=== PATIENT | female | born 1945 | race Caucasian/White ===

== ENCOUNTER 2020-04-24 11:04 | Emergency (ER) | payer MEDICARE ==
[2020-04-24 12:08] LABS: HEMATOCRIT 40.2 % (37.0-47.0); HEMOGLOBIN 13.6 g/dl (12.0-16.0); IMMATURE GRANULOCYTES 0.5 % (0.0-5.0); MEAN CORPUSCULAR HGB 30.8 pG CALC (26.0-32.0); MEAN CORPUSCULAR HGB CONC 33.8 g/dL CAL (32.0-36.0); NEUT# 6.72 thou/uL (2.00-7.15); RED BLOOD COUNT 4.42 mill/uL (4.20-5.60); RED CELL DISTRI WIDTH 13.5 % (11.5-15.5)
[2020-04-24 12:37] LABS: ALBUMIN 4.3 g/dL (3.2-5.0); ALKALINE PHOSPHATASE 83 u/l (38-126); ANION GAP 16 (6-22 (CALC)); BILIRUBIN, TOTAL 0.8 mg/dL (0.0-1.4); BUN 34 mg/dL (8-23); BUN/CREATININE RATIO 26 (12-20 (CALC)); CARBON DIOXIDE 25 mmol/l (22-30); CHLORIDE 93 mmol/l (95-108); CREATININE 1.3 mg/dL (0.5-1.0); GFR 40 ML/MIN (>=60 (CALC)); GFR FOR AFR.AMER. 49 ML/MIN (>=60 (CALC)); POTASSIUM 3.4 mmol/l (3.5-5.1); SGOT/AST 46 u/l (9-36); SODIUM 130 mmol/l (137-146); TOTAL PROTEIN 8.4 g/dL (6.3-8.2)
[2020-04-24] MEDS ORDERED: ZPAK PO (13:33)
[2020-04-24] MEDS ORDERED: TAM75CAP PO (13:33)
[2020-04-24] MEDS ORDERED: NORVASC5 M1 PO (13:37)
[2020-04-24] MEDS ORDERED: B-121000 MC4 PO (13:38)
[2020-04-24] MEDS ORDERED: ESOMEPRAZOLE MA40 MG PO (13:39)
[2020-04-24] MEDS ORDERED: CYMBALTA60 MG PO (13:39)
[2020-04-24] MEDS ORDERED: LUNESTA2 MG PO (13:40)
[2020-04-24] MEDS ORDERED: HYDROXYZ HCL25 MG PO (13:41)
[2020-04-24] MEDS ORDERED: METOPROL TAR25 MG PO (13:42)
[2020-04-24] MEDS ORDERED: LEVOCETIRIZINE D5 MG PO (13:42)
[2020-04-24] MEDS ORDERED: OFEV100 MG PO (13:43)
[2020-04-24] MEDS ORDERED: SIMVASTATIN10 MG PO (13:44)
[2020-04-24] MEDS ORDERED: STIOLTO RESPIMA1 AER IN (13:45)
[2020-04-24] MEDS ORDERED: TRAMADOL HCL50 MG PO (13:45)
[2020-04-24 14:30] VITALS: BP 124/65
--- NOTE | 2020-04-25 09:16 | NUR ---
Notified patient of positive Covid results. Advised patient to return to the ED with any difficulty breathing or other urgent needs. Advised patient to quarantine until contacted by the [facility] with further instructions. Patient verbalized understanding.
== END 2020-04-24 14:30 | disposition home or self-care (01) ==
LOC: ED 11:04
PROVIDERS: Family Medicine
DX: U07.1 COVID-19 (principal); J11.1 Influenza due to unidentified influenza virus with other respiratory manifestations; R53.83 Other fatigue; R11.0 Nausea; I10 Essential (primary) hypertension; Z99.81 Dependence on supplemental oxygen

== ENCOUNTER 2020-04-26 11:22 | Inpatient (IN) | payer MEDICARE ==
[~2020-04-26] VITALS: Ht 154.9 cm; Wt 44.0 kg
[~2020-04-26 11:22] MED LIST: B-121000 MC4 PO; CYMBALTA60 MG PO; ESOMEPRAZOLE MA40 MG PO; HYDROXYZ HCL25 MG PO; LEVOCETIRIZINE D5 MG PO; LUNESTA2 MG PO; METOPROL TAR25 MG PO; NORVASC5 M1 PO; OFEV100 MG PO; SIMVASTATIN10 MG PO; STIOLTO RESPIMA1 AER IN; TAM75CAP PO; TRAMADOL HCL50 MG PO; ZPAK PO
--- NOTE | 2020-04-26 11:22 | NUR ---
PT ASSISTED TO ROOM 9 VIA W/C. PT STABLE AND IN NO DISTRESS, HAS 2L OF HOME O2 ALREADY INITIATED. PT SWITCHED TO [facility] 2L OF O2
[2020-04-26 12:33] LABS: HEMATOCRIT 38.4 % (37.0-47.0); HEMOGLOBIN 13.3 g/dl (12.0-16.0); IMMATURE GRANULOCYTES 0.3 % (0.0-5.0); MEAN CELL VOLUME 90.6 fL CALC (80.0-100.0); MEAN CORPUSCULAR HGB 31.4 pG CALC (26.0-32.0); MEAN CORPUSCULAR HGB CONC 34.6 g/dL CAL (32.0-36.0); NEUT# 10.31 thou/uL (2.00-7.15); RED BLOOD COUNT 4.24 mill/uL (4.20-5.60); RED CELL DISTRI WIDTH 13.5 % (11.5-15.5)
[2020-04-26 12:37] LABS: ALBUMIN 4.1 g/dL (3.2-5.0); ALKALINE PHOSPHATASE 86 u/l (38-126); ANION GAP 15 (6-22 (CALC)); BILIRUBIN, TOTAL 0.9 mg/dL (0.0-1.4); BUN 36 mg/dL (8-23); BUN/CREATININE RATIO 34 (12-20 (CALC)); CARBON DIOXIDE 27 mmol/l (22-30); CHLORIDE 93 mmol/l (95-108); CREATININE 1.1 mg/dL (0.5-1.0); GFR 49 ML/MIN (>=60 (CALC)); GFR FOR AFR.AMER. 59 ML/MIN (>=60 (CALC)); POTASSIUM 3.5 mmol/l (3.5-5.1); SGOT/AST 32 u/l (9-36); SODIUM 131 mmol/l (137-146); TOTAL PROTEIN 7.9 g/dL (6.3-8.2)
--- NOTE | 2020-04-26 12:37 | NUR ---
IV FLUIDS AND ANTIBIOTICS INFUSING WITHOUT DIFFICULTY, VITALS STABLE ON MONITOR. GRANDAUGHTER AT BEDSIDE. CALL LIGHT WITHIN REACH.
--- NOTE | 2020-04-26 12:52 | NUR ---
SBAR PRINTED TO FLOOR
[2020-04-26 13:08] LABS: C-REACTIVE PROTEIN 4.8 mg/dL (0-0.9)
--- NOTE | 2020-04-26 13:53 | NUR ---
PT REMAINS STABLE. IV MEDS AND FLUIDS COMPLETED. TELEMETRY IN PLACE FOR ADMISSION. BELONGINGS GATHERED AND REMAIN ON PT FOR TRANSPORT.
--- NOTE | 2020-04-26 13:58 | NUR ---
REPORT GIVEN TO JUAN CARLOS PIMENTEL.
[2020-04-26 14:02] VITALS: BP 110/53
--- NOTE | 2020-04-26 14:02 | NUR ---
PATIENT RECEIVED FROM ED AT THIS TIME. PATIENT DENIES ANY NEEDS AT THIS TIME. PATIENT STATES SHE ISN'T HAVING ANY PAIN AND RATES HER PAIN A 0 OUT OF 10. PATIENT WAS EDUCATED ON ROOM AND CARE OF PLAN. PATEINT VERBALIZES UNDERSTANDING OF ADMISSION. IV PATENT AND TELE MONITOR IN PLACE. PATIENT LUNG GUZMAN ARE CRACKLES AND DIMINISHED IN SOUND. PATIENT PREVIOUSLY HAS HAD A LEFT LOBECTOMY. CALL LIGHT WITHIN REACH AND SIDERAILS UP X2.
--- NOTE | 2020-04-26 16:00 | NUR ---
O.T. screened pt. and may benefit from P.T. and O.T. eval once medically stable.
[2020-04-26 16:39] LABS: URINE BILIRUBIN - DIPSTICK NEGATIVE (NEGATIVE); URINE BLOOD DIPSTICK NEGATIVE (NEGATIVE); URINE COLOR YELLOW; URINE GLUCOSE - DIPSTICK NEGATIVE (NEGATIVE); URINE KETONE TRACE mg/dL (NEGATIVE); URINE LEUK ESTERASE NEGATIVE (NEGATIVE); URINE NITRITE - DIPSTICK NEGATIVE (Negative); URINE PROTEIN - DIPSTICK TRACE mg/dL (NEG-TRACE); URINE UROBILINOGEN - DIPSTICK 0.2 E.U./dL (0.2)
[2020-04-26 19:30] VITALS: BP 102/44
--- NOTE | 2020-04-26 20:34 | NUR ---
ASSESSMENT COMPLETED AND PT MEDICATED ORDERS PROVIDE AT THIS TIME. NEURO'S ARE INTACT, HYPO-ACTIVE BOWEL SOUNDS, ABD IS SOFT AND NON-TENDER, LUNG SOUNDS ARE CLEAR/DIM. NO S/O DISTRESS. PT DENIES SOB, N/V/D AT THIS TIME. SHE REPORTS LAST EMESIS OUTPUT BEING LAST NIGHT ON THE NIGHT AND LAST LOOSE STOOL OUTPUT THIS AM OF . NC02 ON @2L, BUT PT REPORTS BEING ON OXYGEN AT HOME. SNACK PROVIDED AT THIS TIME. DENIES ANY OTHER NEEDS, BUT HAS BEEN ENCOURAGED TO CALL NEEDS ARISE AND REMINDED TO CALL IF SHE NEEDS TO GET UP TO RESTROOM, VERBALIZED UNDERSTANDING.
[2020-04-27 00:10] VITALS: BP 97/43
--- NOTE | 2020-04-27 00:14 | NUR ---
PT V/S ASSESSED AT THIS TIME. SHE DENIES ANY DISTRESS, REPORTS FEELING MUCH BETTER "SINCE STARTING THE ANTIBIOTICS." PT DENIES ANY NEEDS AT THIS TIME. CALL LIGHT W/IN REACH. EXTERMINATION SUPERVISOR BATTERIES REPLACED AT THIS TIME.
--- NOTE | 2020-04-27 02:14 | NUR ---
PT SLEEPING, NO S/O DISTRESS NOTED.
--- NOTE | 2020-04-27 05:10 | NUR ---
PT WAS SLEEPING, AIDE IN OBTAINING V/S. NO S/O DISTRESS NOTED.
[2020-04-27 05:12] VITALS: BP 97/50
[2020-04-27 05:25] LABS: IMMATURE GRANULOCYTES 0.7 % (0.0-5.0); MEAN CELL VOLUME 93.4 fL CALC (80.0-100.0); MEAN CORPUSCULAR HGB 30.8 pG CALC (26.0-32.0); NEUT# 3.81 thou/uL (2.00-7.15); RED BLOOD COUNT 3.47 mill/uL (4.20-5.60); RED CELL DISTRI WIDTH 13.6 % (11.5-15.5)
[2020-04-27 05:27] LABS: HEMATOCRIT 32.4 % (37.0-47.0); HEMOGLOBIN 10.7 g/dl (12.0-16.0)
[2020-04-27 05:59] LABS: ALKALINE PHOSPHATASE 61 u/l (38-126); BUN 23 mg/dL (8-23); BUN/CREATININE RATIO 30 (12-20 (CALC)); C-REACTIVE PROTEIN 4.9 mg/dL (0-0.9); CARBON DIOXIDE 24 mmol/l (22-30); CHLORIDE 103 mmol/l (95-108); CREATININE 0.8 mg/dL (0.5-1.0); GFR > 60 ML/MIN (>=60 (CALC)); GFR FOR AFR.AMER. > 60 ML/MIN (>=60 (CALC)); SGOT/AST 22 u/l (9-36); SODIUM 133 mmol/l (137-146)
[2020-04-27 06:01] LABS: ALBUMIN 3.1 g/dL (3.2-5.0); ANION GAP 10 (6-22 (CALC)); BILIRUBIN, TOTAL 0.5 mg/dL (0.0-1.4); POTASSIUM 3.9 mmol/l (3.5-5.1); TOTAL PROTEIN 6.2 g/dL (6.3-8.2)
--- NOTE | 2020-04-27 07:30 | NUR ---
PATIENT RESTING IN BED AT THIS TIME. WRAPPER COUNTER DONE AT THIS TIME. LUNG GUZMAN DIMINISHED AND PATIENT STATES "I FEEL MUCH BETTER TODAY". PATIENT DENIES ANY PAIN AT THIS TIME AND STATES HER PAIN IS A 0 OUT OF A SCALE OF 0-10. 02 IS ON AT 2 LITERS SPO2 IS 100% AT THIS TIME. CALL LIGHT WITHIN REACH SIDERAILS UP X 2.
[2020-04-27 12:00] VITALS: BP 100/49
--- NOTE | 2020-04-27 12:15 | NUR ---
PATIENT LAYING IN BED AT THIS TIME EATING LUNCH. PATIENT DENIES ANY NEEDS CURRENTLY. PATIENT STATES SHE HAS NO PAIN. SIDERAILS UP X 2 CALL LIGHT WITHIN REACH.
[2020-04-27 16:00] VITALS: BP 148/115; BP 96/46
--- NOTE | 2020-04-27 16:00 | NUR ---
PATIENT RESTING IN BED AT THIS TIME SIDERAILS UP CALL LIGHT WITHIN REACH DENIES ANY NEEDS AT THIS TIME. O2 REMAINS ON AT 2 LITERS. PATIENT SLAVA HAVING ANY PAIN.
[2020-04-27 19:00] VITALS: BP 107/43
--- NOTE | 2020-04-27 21:00 | NUR ---
PT MEDICATED ORDERS PROVIDE. COKE PROVIDED REQUESTED WITH [facility]ERS FOR COMFORT MEASURES. DENIES ANY OTHER NEEDS. LOCX4.
--- NOTE | 2020-04-27 22:17 | NUR ---
PT MEDICATED FOR SLEEP AIDE. REPORTS FEELING COLD AND THEN HOT ALTERNATING. C/O NOT BEING ABLE TO REGULATE TEMP. SHE ALSO REPORTS THAT HER TASTE BUDS ARE NOT NORMAL YET. O2 SAT 95%NC 2L. TEMP 98.3
[2020-04-28 00:11] VITALS: BP 106/53
[2020-04-28 04:00] VITALS: BP 116/54
[2020-04-28 04:59] LABS: HEMATOCRIT 33.2 % (37.0-47.0); HEMOGLOBIN 10.8 g/dl (12.0-16.0); IMMATURE GRANULOCYTES 0.8 % (0.0-5.0); MEAN CELL VOLUME 96.2 fL CALC (80.0-100.0); MEAN CORPUSCULAR HGB 31.3 pG CALC (26.0-32.0); MEAN CORPUSCULAR HGB CONC 32.5 g/dL CAL (32.0-36.0); NEUT# 9.63 thou/uL (2.00-7.15); RED BLOOD COUNT 3.45 mill/uL (4.20-5.60); RED CELL DISTRI WIDTH 13.7 % (11.5-15.5)
[2020-04-28 05:32] LABS: ALBUMIN 3.6 g/dL (3.2-5.0); ALKALINE PHOSPHATASE 74 u/l (38-126); ANION GAP 13 (6-22 (CALC)); BILIRUBIN, TOTAL 0.5 mg/dL (0.0-1.4); BUN 19 mg/dL (8-23); BUN/CREATININE RATIO 24 (12-20 (CALC)); CARBON DIOXIDE 26 mmol/l (22-30); CHLORIDE 101 mmol/l (95-108); CREATININE 0.8 mg/dL (0.5-1.0); GFR > 60 ML/MIN (>=60 (CALC)); GFR FOR AFR.AMER. > 60 ML/MIN (>=60 (CALC)); SGOT/AST 21 u/l (9-36); SODIUM 137 mmol/l (137-146); TOTAL PROTEIN 6.9 g/dL (6.3-8.2)
[2020-04-28 05:34] LABS: POTASSIUM 3.1 mmol/l (3.5-5.1)
--- NOTE | 2020-04-28 06:22 | NUR ---
IVF REPLENISHED AT THIS TIME. NO S/O DISTRESS NOTED.
[2020-04-28 08:42] VITALS: BP 105/48
--- NOTE | 2020-04-28 08:42 | NUR ---
RECIEVED REPORT FROM JUAN CARLOS KAUFMAN. PT RESTING IN SEMI FOWLERS POSITION UPON ENTERING ROOM. INTRODUCED SELF TO PT AND DISCUSSED POC. PT IS A/O X3. ASSESSMENT AND VITALS COMPLETED. RESPIRATIONS ARE EVEN AND UNLABORED ON 2L NC THAT PT IS DEPENDENT ON AT HOME. LUNG SOUNDS ARE DIMINISHED. HEART RHYTHM IS NORMAL WITH TELE MONITORING IN PLACE, SR WITH 1 DEGREE AV BLOCK. BOWEL SOUNDS ARE ACTIVE IN ALL QUADRANTS, LAST REPORTED BM 04/26/20. RADIAL AND PEDAL PUSLES ARE STRONG. #20G IN RAC RUNNING WITH IVF PER ORDER, SITE APPEARS HEALTHY AND PATENT. PT DENIES OF ANY PAINS OR DISCOMFORTS. ALL SAFETY AND ISOLAITON PRECAUTIONS ARE IN PLACE WITH CALL LIGHT IN REACH. WILL CONTINUE TO MONITOR
--- NOTE | 2020-04-28 09:56 | NUR ---
DR GHOTRA AT BEDSIDE DISCUSSING POC
[2020-04-28 11:03] VITALS: BP 120/52
--- NOTE | 2020-04-28 11:48 | NUR ---
PT RESTING IN SEMI FOWLERS POSITION WITH EYE CLOSED. RESPIRATIONS ARE EVEN AND UNLBAORED ON 2L NC. IV ANTIOBITCS INFUSING WITH EASE, SITE APPEARS HEALTHY AND PATENT. TELE MONITORING REMIANS IN PLACE. NO SIGNS OF ANY DISCOMFORTS. ALL SAFETY AND ISOLATION PRECAUTIONS ARE IN PLACE WITH CALL LIGHT IN REACH. WILL CONTINUE TO MONITOR.
[2020-04-28 15:30] VITALS: BP 102/52
--- NOTE | 2020-04-28 15:35 | NUR ---
PT RESTING IN SEMI FOWLERS POSITION. REPIRATIONS ARE EVEN AND UNLAORED ON 2L NC. IV FLUIDS INFUSING PER ORDER, SITE APPEARS HEALTHY AND PATENT. PT COMPLAINS OF ROOM BEING TO COLD. HEAT INCREASED AND HEAT BLANKET PROVIDED. PT DENIES OF ANY OTHER NEEDS OR DISCOMFORTS. ALL SAFTEY AND ISOLATION PRECAUTIONS ARE IN PLACE WITH CALL LIGHT IN REACH.WILL CONTINUE TO MONITOR
[2020-04-28 19:00] VITALS: BP 115/59
--- NOTE | 2020-04-28 21:00 | NUR ---
PATIENT RESTING IN BED WITH O2 VIA NASAL CANNULA IN PLACE. O2 SAT AT THIS TIME IS 97%. AWAKE ALERT AND ORIENTEDX3. PATIENT WITH NO COMPLAINTS AT THIS TIME. PATIENT IS ON ISOLATION IN NEG PRESSURE ROOM FOR COVID AND FLU. PATIENT WITH HX OF COPD. TELE MONITOR IN PLACE. IVF NS PATENT AND INFUSING VIA RAC SITE AT 50CC/HR. SITE IS HEALTHY AT THIS TIME. PATIENT VOIDING QS YELLOW URINE ON BSC. PATIENT PROVIDED WITH WARM CHICKEN BROOTH PER PATIENT REQUEST. SONATA 5MG PO GIVEN FOR SLEEP. SAFETY PRFECAUTIONS REINFORCED. CALL LIGHT IN REACH. WILL CONT TO MONITOR.
[2020-04-29] VITALS: BP 106/53; BP 120/68
--- NOTE | 2020-04-29 00:30 | NUR ---
PATIENT RESTING IN BED WITH O2 VIA NASAL CANNULA IN PLACE. APPEARS SLEEPING WITH EYES CLOSED. RESPS ARE EVEN AND UNLABORED AT THIS TIME. IVF PATENT AND INFUSING VIA RAC SITE AT 50CC/HR. TGELE MONITOR IN PLACE. CALL LIGHT IN REACH. WILL CONT TO MONITOR.
[2020-04-29 04:00] VITALS: BP 130/78
--- NOTE | 2020-04-29 04:30 | NUR ---
PATIENT APPEARS SLEEPING AT THIS TIME WITH EYES CLOSED AND O2 VIA NASAL CANNULA IN PLACE. RESPS ARE EVEN AND UNLABORED. TELE MONITOR IN PLACE. IVF PATENT AND INFUSING RAC AT 50CC/HR. CALL LIGHT IN REACH. WILL CONT TO MONITOR.
[2020-04-29 05:54] LABS: HEMATOCRIT 34.5 % (37.0-47.0); HEMOGLOBIN 11.4 g/dl (12.0-16.0); IMMATURE GRANULOCYTES 1.2 % (0.0-5.0); MEAN CORPUSCULAR HGB 30.7 pG CALC (26.0-32.0); NEUT# 8.08 thou/uL (2.00-7.15); RED BLOOD COUNT 3.71 mill/uL (4.20-5.60); RED CELL DISTRI WIDTH 13.7 % (11.5-15.5)
[2020-04-29 06:30] LABS: C-REACTIVE PROTEIN 0.9 mg/dL (0-0.9)
[2020-04-29 07:53] VITALS: BP 120/64
--- NOTE | 2020-04-29 07:53 | NUR ---
RECIEVED REPORT FROM JUAN CARLOS MORAN. PT RESTING IN SEMI FOWLERS POSITION UPON ENTERING ROOM INTRODUCED SELF TO PT AND DISCUSSED POC. PT IS A/O X3. ASSESSMENT AND VITALS COMPLETED. BP 120/64, HR 70, O2 98% ON 2L NC THAT PT IS DEPENDENT ON AT HOME. RESPIRATIONS ARE EVEN AND UNLABLORED . LUNG SOUNDS CLEAR. HEART RHYTHM NORMAL WITH TELE IN PLACE. BOWEL SOUNDS ACTIVE IN ALL QUADRANTS, LAST REPORTED BM 04/29/2020. RADIAL AND PEDAL PULSES STRONG. #20G IN RAC RUNNING WITH NORMAL SALINE PER ORDER, SITE APPEARS HEALTHY AND PATENT. PT DENIES OF ANY PAINS OR DISCOMFORTS. ALL SAFETY PRECAUTIONS ARE IN PLACE WITH CALL LIGHT IN REACH. WILL CONTINUE TO MONITOR
[2020-04-29 09:12] LABS: ANION GAP 12 (6-22 (CALC)); BUN 23 mg/dL (8-23); BUN/CREATININE RATIO 36 (12-20 (CALC)); CARBON DIOXIDE 23 mmol/l (22-30); CHLORIDE 104 mmol/l (95-108); CREATININE 0.6 mg/dL (0.5-1.0); GFR > 60 ML/MIN (>=60 (CALC)); GFR FOR AFR.AMER. > 60 ML/MIN (>=60 (CALC)); MAGNESIUM 1.6 mg/dL (1.6-2.3); POTASSIUM 3.7 mmol/l (3.5-5.1); SODIUM 136 mmol/l (137-146)
--- NOTE | 2020-04-29 09:30 | NUR ---
DR HERRING AT BEDSIDE
--- NOTE | 2020-04-29 09:46 | NUR ---
ORDERS TO HOLD MAG AND POTASSIUM BY DR GHOTRA AT BEDSIDE
[2020-04-29 10:50] VITALS: BP 102/51
--- NOTE | 2020-04-29 11:53 | NUR ---
PT RESTING IN SEMI FOWLERS POSITION EATING LUNCH. RESPIRATIONS ARE EVEN AND UNLABORED ON 2L NC. IV ANTBIOTICS INFUSING, SITE APPEARS HEALTHY AND PATENT. PT DENIES OF ANY PAINS OR NEEDS AT THIS TIME. ALL SAFETY AND ISOLATION PRECAUTIONS ARE IN PLACE WITH CALL LIGHT IN REACH. WILL CONTINUE TO MONITOR
[2020-04-29 15:30] VITALS: BP 106/53
--- NOTE | 2020-04-29 15:32 | NUR ---
PT SLEEPING I LOW CARRILLO POSITION. RESPIRATIONS ARE EVEN AND UNLABORED ON 2L NC. TELE MONIROING IN PLACE. IVF INFUSING PER ODER, SITE APPEARS HEALTHY AND PATENT. NO SIGNS OF ANY PAINS OR DISCOMFORTS. ALL SAFETY AND ISOALTION PRECAUTIONS AER IN PLACE. WILL CONTINUE TO MONITOR
[2020-04-29 19:15] VITALS: BP 111/53
[2020-04-30 00:15] VITALS: BP 102/48
[2020-04-30 04:10] VITALS: BP 105/55
[2020-04-30 05:33] LABS: ALBUMIN 3.7 g/dL (3.2-5.0); ALKALINE PHOSPHATASE 77 u/l (38-126); ANION GAP 10 (6-22 (CALC)); BILIRUBIN, TOTAL 0.4 mg/dL (0.0-1.4); BUN 27 mg/dL (8-23); BUN/CREATININE RATIO 31 (12-20 (CALC)); CARBON DIOXIDE 25 mmol/l (22-30); CHLORIDE 106 mmol/l (95-108); CREATININE 0.9 mg/dL (0.5-1.0); GFR > 60 ML/MIN (>=60 (CALC)); GFR FOR AFR.AMER. > 60 ML/MIN (>=60 (CALC)); POTASSIUM 3.2 mmol/l (3.5-5.1); SGOT/AST 19 u/l (9-36); SODIUM 137 mmol/l (137-146); TOTAL PROTEIN 7.1 g/dL (6.3-8.2)
[2020-04-30 07:54] VITALS: BP 123/68
--- NOTE | 2020-04-30 07:54 | NUR ---
RECIEVED REPORT FROM JUAN CARLOS MCDONALD. PT RESTING IN SEMI FOWLERS POSITION UPON ENTERING ROOM. INTRODUCED SELF TO PT AND DISCUSSED POC. PT IS A/O X3. ASSESSMENT AND VITALS COMPLETED. RESPIRATIONS ARE EVEN AND UNLABORED ON 2L NC, PT DEPENDENT AT HOME.HEART RHYTHM IS NORMAL WITH TELE IN PLACE. BOWEL SOUNDS ARE ACTIVE IN ALL QUADANTS. RADIAL AND PEDAL PULSES STRONG. #20G IN RAC RUNNING WITH IVF PER ORDER, SITE APPEARS HEALTHY AND PATENT. PT EDUACTED ON NEED FOR CHANGING IF NOT DISCHARGED. PT VERBALIZED UNDERSTANDING.PT DENIES OF ANY PAIN OR NEEDS AT THIS TIME. ALL SAFETY AND ISOLATION PRECAUTIONS ARE IN PLACE WITH CALL LIGHT IN REACH. WILL CONTINUE TO MONITOR
--- NOTE | 2020-04-30 10:05 | NUR ---
DR GHOTRA AT [facility]
[2020-04-30] MEDS ORDERED: LEVOFLOXACIN750 MG PO (10:32)
[2020-04-30] MEDS ORDERED: DECADRON6 MG PO (10:33)
[2020-04-30 11:24] VITALS: BP 111/68
--- NOTE | 2020-04-30 11:52 | NUR ---
PT EDUCATED ON DISCHARGE INSTRUCTIONS AND NEW MEDICATIONS.PT VERBALIZED UNDERSTANDING. TELE MONITORING REMOVED, ER NOTIFIED. PT INFORMS SUPERVISOR FUNCTIONAL TESTING THAT TRANSPORTATION WILL ARRIVE AROUND 1400. IVF REMAINS TO ADMINISTER ANTIBIOTICS. ALL SAFETY AND ISOLATION PRECAUTIONS ARE IN PLACE WITH CALL LIGHT IN REACH. WILL CONTINUE TO MONITOR.
--- NOTE | 2020-04-30 14:12 | NUR ---
IV REMOVED WITH CATHATER STILL INTACT. PT TOLERATED WELL. WAITING FOR TRANSPORTATION AT THIS TIME.WILL CONTINUE TO MONITOR
--- NOTE | 2020-04-30 14:18 | NUR ---
Discharge instructions given. Patient verbalizes understanding of same. Discharged in stable condition via Wheelchair to Home with staff. All belongings sent with pt. PT DISCHARGED WITH [facility] IN STABLE CONDITION VIA WHEELCHAIR. PT LEFT WITH ALL DISCHARGE INSTRUCTIONS AND HOME MEDICATIONS.
== END 2020-04-30 14:18 | DRG 177 ==
LOC: ED 11:22 → ED-I 12:01 → ED 12:54 → MS2 12:55
PROVIDERS: Family Medicine; Nurse Practitioner; Nurse Practitioner Family; ADMIT Internal Medicine; ATTEND Internal Medicine
DX: U07.1 COVID-19 (principal); J12.89 Other viral pneumonia; J96.20 Acute and chronic respiratory failure, unspecified whether with hypoxia or hypercapnia; J10.1 Influenza due to other identified influenza virus with other respiratory manifestations; N28.9 Disorder of kidney and ureter, unspecified; E86.0 Dehydration; E87.6 Hypokalemia; E83.42 Hypomagnesemia; J43.9 Emphysema, unspecified; I25.10 Atherosclerotic heart disease of native coronary artery without angina pectoris; I12.9 Hypertensive chronic kidney disease with stage 1 through stage 4 chronic kidney disease, or unspecified chronic kidney disease; N18.9 Chronic kidney disease, unspecified; E78.5 Hyperlipidemia, unspecified; K21.9 Gastro-esophageal reflux disease without esophagitis; F32.9 Major depressive disorder, single episode, unspecified; F41.9 Anxiety disorder, unspecified; Z99.81 Dependence on supplemental oxygen; Z79.891 Long term (current) use of opiate analgesic; Z79.899 Other long term (current) drug therapy; Z88.8 Allergy status to other drugs, medicaments and biological substances; Z91.040 Latex allergy status
CPT/HCPCS: J1650; J3475; Q9967